=== PATIENT | male | born 1960 | race African-American/Black ===

== ENCOUNTER 2016-08-08 14:43 | Emergency (ER) | payer OTHER, SELFPAY ==
[~2016-08-08 14:43] MED LIST: Dexamethasone 10 MG/ML VIAL ONE; Ibuprofen 800 MG TAB ONE; traMADol HCl 50 MG TAB ONE
--- NOTE | 2016-08-08 16:02 | ERRECORD ---
[facility] EMERGENCY RECORD HPI BACK (15:05 BPIC) CHIEF COMPLAINT: Patient presents for evaluation of pain, to the lower back, left side. HISTORIAN: History provided by patient. MECHANISM OF INJURY: No apparent mechanism of injury, Patient does admit repetative motion/lifting that probably execerbated the pain. LOCATION: No radiation back to front, No radiation to the groin, Pain moved from, some radiation to buttock/thigh area. QUALITY: Described as similar to previous episodes. SEVERITY: Maximum severity of symptoms severe, Currently symptoms are moderate. TIME COURSE: Gradual onset of symptoms, There has been no change in the patient's symptoms over time. ASSOCIATED WITH: No associated bladder incontinence, No associated bowel incontinence, No associated dysuria, No associated fever, No associated inability to ambulate, No associated motor weakness, No associated numbness, No associated problems with urination. EXACERBATED BY: Patient's condition exacerbated by extension, Patient's condition exacerbated by flexion, Patient's condition exacerbated by movement, Patient's condition exacerbated by rotation. RELIEVED BY: Patient's condition relieved by nothing. ROS (15:05 BPIC) CONSTITUTIONAL: Negative constitutional review of systems. EYES: Negative eye review of systems. ENT: Negative ears, nose, throat review of systems. CARDIOVASCULAR: Negative cardiovascular review of systems. RESPIRATORY: Negative respiratory review of systems. GI: Negative gastrointestinal review of systems. MUSCULOSKELETAL: Negative musculoskeletal review of systems. SKIN: Negative skin review of systems. PSYCHIATRIC: Negative psychiatric review of systems. NOTES: All other ROS is negative except as listed in HPI. PAST MEDICAL HISTORY MEDICAL HISTORY: No past medical history. (14:56 SFRE) MALE SURGICAL HISTORY: Surgical history of orthopedic surgery, BACK. (14:56 SFRE) PSYCHIATRIC HISTORY: No previous psychiatric history. (14:56 SFRE) SOCIAL HISTORY: Patient drinks socially, Patient denies drug use, Patient currently uses tobacco. (14:56 SFRE) NOTES: I have reviewed and agree with the PMH/PSxH/FamHx/SocHx obtained by the nurse. (15:05 BPIC) KNOWN ALLERGIES NKDA No Known Drug Allergies (Unconfirmed) &a-1R&a+25V*p+0X*k1481Z*c202B*c15G*c2P*p-0X&a-25V&a+1R Name: Bradley Matthews: 1960 M56 MedRec: [id number] AcctNum: [id number] Prepared: SatAug 08, 2016 18:32 by Interface Page 1 of 3 pMD [facility] EMERGENCY RECORD CURRENT MEDICATIONS No recorded medications VITAL SIGNS (14:52 SFRE) VITAL SIGNS: BP: 115/85, Pulse: 87, Resp: 18, Temp: 98.6 (Oral), O2 sat: 99 on Room Air, Time: 08/08/2016 14:52. PHYSICAL EXAM (15:05 BPIC) CONSTITUTIONAL: Vital signs reviewed, Patient afebrile, Pulse normal, Blood pressure normal, Respiratory rate normal, Patient appears non toxic, Patient appears pain free, Patient alert and oriented to person, place and time. HEAD: Head exam included findings of head atraumatic, normocephalic. EYES: Eye exam included findings of eyelids normal to inspection, Pupils equally round and reactive to light, Extraocular muscles intact. ENT: ENT exam normal. NECK: Neck exam included findings of normal range of motion, Trachea midline. RESPIRATORY CHEST: Respiratory exam included findings of no respiratory distress, Breath sounds clear, Chest exam included findings of chest movement symmetrical, Chest expansion equal. CARDIOVASCULAR: Cardiovascular exam included findings of heart rate regular rate and rhythm, Heart sounds normal. BACK: Back exam included findings of normal inspection, Tenderness, Paraspinal musculature. LOWER EXTREMITY: Lower extremity exam included findings of inspection normal, no abrasions, no contusions, Motor strength normal, Sensation intact, no edema, Negative straight leg raise. Some pain with hip flexion on the affected side. NEURO: Neuro exam findings include patient oriented to person, place and time, Speech normal. PSYCHIATRIC: Psychiatric exam included findings of patient oriented to person place and time, Normal affect. MEDICATION ADMINISTRATION SUMMARY Drug Name: Decadron injection, Dose Ordered: 10 mg, Route: Intramuscular, Status: Given, Time: 15:08/08/2016, Drug Name: ibuprofen, Dose Ordered: 800 mg, Route: Oral, Status: Given, Time: :08/08/2016, Drug Name: traMADol, Dose Ordered: 50 mg, Route: Oral, Status: Given, Time: 15:08/08/2016, Detailed record available in Medication Service section. DOCTOR NOTES (15:05 BPIC) TEXT: Patient present with low back pain. DDX includes degenerative disc disease, radiculopathy, lumbago, epidural &a-1R&a+25V*p+0X*g2592G*c202B*c15G*c2P*p-0X&a-25V&a+1R Name: Bradley Matthews : 1960 M56 MedRec: [id number] AcctNum: [id number] Prepared: SatAug 08, 2016 18:32 by Interface Page 2 of 3 pMD [facility] EMERGENCY RECORD abcess/hematoma, pyriformis syndrome, sacroilitis. There are no neuro deficits or signs of central nervous system involvement. Will discharge with symptomatic treatment and have close O/P follow up. PROBLEM LIST No recorded problems DIAGNOSIS (15:07 BPIC) FINAL: PRIMARY: left lower back pain. PRESCRIPTION (15:07 BPIC) ibuprofen: TABLET : 800 mg : ORAL : Quantity: 800 Unit: mg Route: ORAL Schedule: every 8 hours PRN Dispense: 60 Unit: tab(s) May substitute. Refills: No Refills . NOTES: No Refills. traMADol: TABLET : 50 mg : ORAL : Quantity: 50 Unit: mg Route: ORAL Schedule: every 6 hours PRN Dispense: 20 Unit: tab(s) May substitute. Refills: No Refills . NOTES: ^s=No Refills No Refills. DISPOSITION PATIENT: Disposition Type: Discharge, Disposition: *Discharge Home, Condition: Good. (15:07 BPIC) Patient left the department. (15:50 SFRE) Clark: BPIC=MD Zhane, Eder SFRE=INOCENTE Walker, Francesca &a-1R&a+25V*p+0X*o0160J*c202B*c15G*c2P*p-0X&a-25V&a+1R Name: Bradley Matthews : 1960 M56 MedRec: [id number] AcctNum: [id number] Prepared: SatAug 08, 2016 18:32 by Interface Page 3 of 3 pMD [facility]
--- NOTE | 2016-08-08 16:02 | PICIS ---
[facility] EMERGENCY RECORD TRIAGE (SatAug 08, 2016 14:54 SFRE) TRIAGE NOTES: LEFT FLANK PAIN, POSSIBLY RELEATED TO WORK. (SatAug 08, 2016 14:54 SFRE) PATIENT: NAME: Bradley Matthews, AGE: 56, GENDER: male, : [facility] 1960, TIME OF GREET: SatAug 08, 2016 14:44, PREFERRED LANGUAGE: Nepali, ETHNICITY: Not or , ECODE BILLING MAP: [facility], SSN: [id number], Zip Code: [address], KG WEIGHT: 66.22, PHONE: , , , PERSON ID: [id number], PCP: NO PCP. (SatAug 08, 2016 14:54 SFRE) COMPLAINT: KIDNEY PAIN. (SatAug 08, 2016 14:54 SFRE) ADMISSION: URGENCY: 3 Urgent, ADMISSION SOURCE: Home, TRANSPORT: Walk-in, BED: ED -05. (SatAug 08, 2016 14:54 SFRE) IMMUNIZATIONS: Flu vaccine not up to date. (14:56 SFRE) PROVIDERS: TRIAGE NURSE: Francesca Walker RN. (SatAug 08, 2016 14:54 SFRE) VITAL SIGNS: BP 115/85, Pulse 87, Resp 18, Temp 98.6, (Oral), O2 Sat 99, on Room Air, Time 08/08/2016 14:52. (14:52 SFRE) PREVIOUS VISIT ALLERGIES: No Known Drug Allergies. (SatAug 08, 2016 14:54 SFRE) No Known Drug Allergies. (14:56 SFRE) KNOWN ALLERGIES NKDA No Known Drug Allergies (Unconfirmed) CURRENT MEDICATIONS No recorded medications VITAL SIGNS (14:52 SFRE) VITAL SIGNS: BP: 115/85, Pulse: 87, Resp: 18, Temp: 98.6 (Oral), O2 sat: 99 on Room Air, Time: 08/08/2016 14:52. NURSING ASSESSMENT: BACK (14:57 SFRE) CONSTITUTIONAL: Patient arrives ambulatory, Gait steady, History obtained from patient, Patient appears, in distress due to pain, Patient cooperative, Patient alert, Oriented to person, place and time, Skin warm, Skin dry, Skin normal in color, Mucous membranes pink, Mucous membranes moist, Patient is well-groomed, Patient complains of BACK PAIN. PAIN: sharp pain, shooting pain, to the lower back, to the left flank, Onset of pain 08/04/2016 14:57, constant, on a scale 0-10 patient rates pain as 8, Pain exacerbated by, elevation, lying down, sitting up, Nothing has been tried to alleviate the pain. BACK: no paresthesias to extremities. SAFETY: Side rails up, Cart/Stretcher in lowest position, Call light within reach, Hospital ID band on. &a-1R&a+25V*p+0X*o1018A*c202B*c15G*c2P*p-0X&a-25V&a+1R Name: Bradley aMtthews : 1960 M56 MedRec: [id number] AcctNum: [id number] Prepared: SatAug 08, 2016 18:38 by Interface Page 1 of 5 pMD [facility] EMERGENCY RECORD NURSING PROCEDURE: DISCHARGE NOTE (15:41 SFRE) DISCHARGE: Patient discharged to home, ambulating without assistance, family driving, accompanied by //partner, Summary of Care printed/ provided, Patient requested and was provided an electronic copy of Discharge Instructions, Discharge instructions given to patient, Simple or moderate discharge teaching performed, by INOCENTE ORTEGA, F/U WITH PCP. RX DIRECTED. RETURN TO ED NEEDED FOR NEW/CONCERNING OR WORSENING SYMPTOMS., Prescriptions given and instructions on side effects given, Name of prescription(s) given: IBUPROFEN, TRAMADOL, Above person(s) verbalized understanding of discharge instructions and follow-up care. MEDICATION ADMINISTRATION SUMMARY Drug Name: Decadron injection, Dose Ordered: 10 mg, Route: Intramuscular, Status: Given, Time: 15:08/08/2016, Drug Name: ibuprofen, Dose Ordered: 800 mg, Route: Oral, Status: Given, Time: 15:08/08/2016, Drug Name: traMADol, Dose Ordered: 50 mg, Route: Oral, Status: Given, Time: 15:08/08/2016, Detailed record available in Medication Service section. MEDICATION SERVICE Decadron injection: Order: Decadron injection (dexamethasone sod phosphate) - Dose: 10 mg : Intramuscular Schedule: Now Ordered by: Eder Phelan MD Entered by: Eder Phelan MD SatAug 08, 2016 15:06 , Acknowledged by: Francesca Walker RN SatAug 08, 2016 15:19 Documented as given by: Francesca Walker RN SatAug 08, 2016 15:26 Patient, Medication, Dose, Route and Time verified prior to administration. IM medication, Amount given: 10MG, Medication administered to left deltoid, Patient appears Awake and alert- acceptable, Correct patient, time, route, dose and medication confirmed prior to administration, Patient advised of actions and side-effects prior to administration, Allergies confirmed and medications reviewed prior to administration, Patient in position of comfort, Side rails up, Cart in lowest position, Family at bedside. ibuprofen: Order: ibuprofen - Dose: 800 mg : Oral Ordered by: Eder Phelan MD Entered by: Eder Phelan MD SatAug 08, 2016 15:06 , Acknowledged by: Francesca Walker RN SatAug 08, 2016 15:19 Documented as given by: Francesca Walker RN SatAug 08, 2016 15:26 Patient, Medication, Dose, Route and Time verified prior to administration. Amount given: 800MG, Site: Medication administered P.O., Correct patient, time, route, dose and medication confirmed prior to administration, Patient advised of actions and side-effects prior to administration, Allergies confirmed and medications reviewed prior to &a-1R&a+25V*p+0X*e4162Y*c202B*c15G*c2P*p-0X&a-25V&a+1R Name: Bradley Matthews Shahid : 1960 M56 MedRec: [id number] AcctNum: [id number] Prepared: SatAug 08, 2016 18:38 by Interface Page 2 of 5 pMD [facility] EMERGENCY RECORD administration, Patient in position of comfort, Side rails up, Cart in lowest position, Family at bedside. traMADol: Order: traMADol (tramadol HCl) - Dose: 50 mg : Oral Ordered by: Eder Phelan MD Entered by: Eder Phelan MD SatAug 08, 2016 15:06 , Acknowledged by: Francesca Walker RN SatAug 08, 2016 15:19 Documented as given by: Francesca Walker RN SatAug 08, 2016 15:25 Patient, Medication, Dose, Route and Time verified prior to administration. Amount given: 50MG, Site: Medication administered P.O., Correct patient, time, route, dose and medication confirmed prior to administration, Patient advised of actions and side-effects prior to administration, Allergies confirmed and medications reviewed prior to administration, Patient in position of comfort, Side rails up, Cart in lowest position, Family at bedside. HPI BACK (15:05 BPIC) CHIEF COMPLAINT: Patient presents for evaluation of pain, to the lower back, left side. HISTORIAN: History provided by patient. MECHANISM OF INJURY: No apparent mechanism of injury, Patient does admit repetative motion/lifting that probably execerbated the pain. LOCATION: No radiation back to front, No radiation to the groin, Pain moved from, some radiation to buttock/thigh area. QUALITY: Described as similar to previous episodes. SEVERITY: Maximum severity of symptoms severe, Currently symptoms are moderate. TIME COURSE: Gradual onset of symptoms, There has been no change in the patient's symptoms over time. ASSOCIATED WITH: No associated bladder incontinence, No associated bowel incontinence, No associated dysuria, No associated fever, No associated inability to ambulate, No associated motor weakness, No associated numbness, No associated problems with urination. EXACERBATED BY: Patient's condition exacerbated by extension, Patient's condition exacerbated by flexion, Patient's condition exacerbated by movement, Patient's condition exacerbated by rotation. RELIEVED BY: Patient's condition relieved by nothing. ROS (15:05 BPIC) CONSTITUTIONAL: Negative constitutional review of systems. EYES: Negative eye review of systems. ENT: Negative ears, nose, throat review of systems. CARDIOVASCULAR: Negative cardiovascular review of systems. RESPIRATORY: Negative respiratory review of systems. GI: Negative gastrointestinal review of systems. MUSCULOSKELETAL: Negative musculoskeletal review of systems. SKIN: Negative skin review of systems. PSYCHIATRIC: Negative psychiatric review of systems. &a-1R&a+25V*p+0X*u5336R*c202B*c15G*c2P*p-0X&a-25V&a+1R Name: Bradley Matthews : 1960 M56 MedRec: [id number] AcctNum: [id number] Prepared: SatAug 08, 2016 18:38 by Interface Page 3 of 5 pMD [facility] EMERGENCY RECORD NOTES: All other ROS is negative except as listed in HPI. PAST MEDICAL HISTORY MEDICAL HISTORY: No past medical history. (14:56 SFRE) MALE SURGICAL HISTORY: Surgical history of orthopedic surgery, BACK. (14:56 SFRE) PSYCHIATRIC HISTORY: No previous psychiatric history. (14:56 SFRE) SOCIAL HISTORY: Patient drinks socially, Patient denies drug use, Patient currently uses tobacco. (14:56 SFRE) NOTES: I have reviewed and agree with the PMH/PSxH/FamHx/SocHx obtained by the nurse. (15:05 BPIC) PHYSICAL EXAM (15:05 BPIC) CONSTITUTIONAL: Vital signs reviewed, Patient afebrile, Pulse normal, Blood pressure normal, Respiratory rate normal, Patient appears non toxic, Patient appears pain free, Patient alert and oriented to person, place and time. HEAD: Head exam included findings of head atraumatic, normocephalic. EYES: Eye exam included findings of eyelids normal to inspection, Pupils equally round and reactive to light, Extraocular muscles intact. ENT: ENT exam normal. NECK: Neck exam included findings of normal range of motion, Trachea midline. RESPIRATORY CHEST: Respiratory exam included findings of no respiratory distress, Breath sounds clear, Chest exam included findings of chest movement symmetrical, Chest expansion equal. CARDIOVASCULAR: Cardiovascular exam included findings of heart rate regular rate and rhythm, Heart sounds normal. BACK: Back exam included findings of normal inspection, Tenderness, Paraspinal musculature. LOWER EXTREMITY: Lower extremity exam included findings of inspection normal, no abrasions, no contusions, Motor strength normal, Sensation intact, no edema, Negative straight leg raise. Some pain with hip flexion on the affected side. NEURO: Neuro exam findings include patient oriented to person, place and time, Speech normal. PSYCHIATRIC: Psychiatric exam included findings of patient oriented to person place and time, Normal affect. EVENTS TRANSFER: Triage to Emergency Main ED -05. (SatAug 08, 2016 14:54 SFRE) Removed from Emergency Main ED -05. (15:50 SFRE) DOCTOR NOTES (15:05 BPIC) TEXT: Patient present with low back pain. DDX includes &a-1R&a+25V*p+0X*q6823T*c202B*c15G*c2P*p-0X&a-25V&a+1R Name: Bradley Matthews : 1960 M56 MedRec: [id number] AcctNum: [id number] Prepared: SatAug 08, 2016 18:38 by Interface Page 4 of 5 pMD [facility] EMERGENCY RECORD degenerative disc disease, radiculopathy, lumbago, epidural abcess/hematoma, pyriformis syndrome, sacroilitis. There are no neuro deficits or signs of central nervous system involvement. Will discharge with symptomatic treatment and have close O/P follow up. PROBLEM LIST No recorded problems DIAGNOSIS (15:07 BPIC) FINAL: PRIMARY: left lower back pain. DISPOSITION PATIENT: Disposition Type: Discharge, Disposition: *Discharge Home, Condition: Good. (15:07 BPIC) Patient left the department. (15:50 SFRE) INSTRUCTION (15:07 BPIC) DISCHARGE: BACK PAIN W/ SCIATICA. FOLLOWUP: ANAI, -, Primary Care Referral Line, . SPECIAL: Thank you for [facility] for your care today! Please follow up with your doctor in the next 2-3 days. Return to the emergency department with any emergent or worsening concerns. God Bless you!. PRESCRIPTION (15:07 BPIC) ibuprofen: TABLET : 800 mg : ORAL : Quantity: 800 Unit: mg Route: ORAL Schedule: every 8 hours PRN Dispense: 60 Unit: tab(s) May substitute. Refills: No Refills . NOTES: No Refills. traMADol: TABLET : 50 mg : ORAL : Quantity: 50 Unit: mg Route: ORAL Schedule: every 6 hours PRN Dispense: 20 Unit: tab(s) May substitute. Refills: No Refills . NOTES: ^s=No Refills No Refills. IMAGING (15:43 SFRE) *DISCHARGE INSTRUCTIONS RECEIPT: Image captured from scanner. *SUPPLY CHARGE SHEET: Image captured from scanner. ADMIN DIGITAL SIGNATURE: INOCENTE Walker, Francesca. (15:49 SFRE) INOCENTE Walker Stacey. (15:49 SFRE) MD Phelan Bryan. (18:27 BP) Clark: BPIC=MD Phelan Bryan SFRE=INOCENTE Walker, Francesca &a-1R&a+25V*p+0X*n0481A*c202B*c15G*c2P*p-0X&a-25V&a+1R Name: Bradley Matthews : 1960 M56 MedRec: [id number] AcctNum: [id number] Prepared: Vaibhav Aug 08, 2016 18:38 by Interface Page 5 of 5 pMD [facility]TDD
== END 2016-08-08 15:40 | disposition home or self-care (01) ==
LOC: MADERS 14:43
DX: M54.5 Low back pain (principal); F17.200 Nicotine dependence, unspecified, uncomplicated
CPT/HCPCS: 96372; J1100

== ENCOUNTER 2018-11-20 20:21 | Emergency (ER) | payer SELFPAY ==
[2018-11-20] MEDS ORDERED: methylPREDNISolone Sod Succ/PF 125 MG/2 ML VIAL ONE (20:54)
[2018-11-20] MEDS ORDERED: Sodium Chloride 0.9% 500 ML ONE ×2 (20:54→21:35)
[2018-11-20 21:11] LABS: #Basophils 0.2 thou/uL (0.0-0.2); #Eosinphils 0.2 thou/uL (0.0-0.7); #Lymphocytes 2.5 thou/uL (1.20-3.40); #Neutrophils 3.2 thou/uL (1.40-6.50); %Basophils 2.2 % (0.0-1.0); %Eosinophils 3.3 % (0.0-10.0); %Lymphocytes 35.5 % (21.0-51.0); %Monocytes 13.5 % (0.0-10.0); %Neutrophils 45.5 % (42.0-75.0); Hemoglobin 14.4 g/dL (14.0-18.0); Mean Corpuscular HGB CONC 32.1 g/dL (32.0-36.0); Mean Corpuscular Hemoglobin 28.8 pg (27.0-31.0); Mean Corpuscular Volume 89.9 fL (78.0-98.0); Mean Platelet Volume 8.7 fL (7.4-10.4); Platelet Count 209 thou/uL (130-400); Red Blood Cell (RBC) Count 4.99 mill/uL (4.70-6.10)
--- NOTE | 2018-11-20 21:11 | RAD ---
Portable frontal chest radiograph: 11/20/2018 COMPARISON: 06/09/2011 and 04/20/2017 HISTORY: COPD, cough FINDINGS: Stable increased linear interstitial density and pulmonary hyperinflation, consistent with the provided history of COPD. No pneumothorax or pleural fluid. No focal consolidation or alveolar edema. IMPRESSION: Chronic findings as described above.
[2018-11-20 21:18] LABS: ALT (SGPT) 45 U/L (8-55); AST (SGOT) 61 U/L (5-34); Albumin 4.1 g/dL (3.5-5.0); Alkaline Phosphatase 79 U/L (40-150); Anion Gap 16 mmol/L (10-20); BUN (Urea Nitrogen) 17 mg/dL (8.4-25.7); Bilirubin, Total 0.8 mg/dL (0.2-1.2); Calc. Creatinine Clearance 0 mL/min (70-130); Calcium 9.3 mg/dL (7.8-10.44); Carbon Dioxide 22 mmol/L (22-29); Chloride 101 mmol/L (98-107); Estimated GFR-MDRD 50; Globulin 4.7 g/dL (2.4-3.5); Glucose 97 mg/dL (70-105); Protein, Total 8.8 g/dL (6.0-8.3); Sodium 135 mmol/L (136-145)
== END 2018-11-20 22:20 | disposition home or self-care (01) ==
LOC: MADERS 20:21
DX: J44.1 Chronic obstructive pulmonary disease with (acute) exacerbation (principal); E86.0 Dehydration; F10.10 Alcohol abuse, uncomplicated; N28.9 Disorder of kidney and ureter, unspecified; F17.210 Nicotine dependence, cigarettes, uncomplicated
CPT/HCPCS: 36415; 71045; 80053; 83880; 84484; 85025; 85379; 93005; 94640; 94760; 96361; 96374; J2930; J7050; J7620

== ENCOUNTER 2021-03-22 17:05 | Emergency (ER) | payer SELFPAY ==
[~2021-03-22 17:05] MED LIST changes: -Dexamethasone 10 MG/ML VIAL ONE; -Ibuprofen 800 MG TAB ONE; +Iopamidol 370 76% 100 ML VIAL ONE; -traMADol HCl 50 MG TAB ONE
[2021-03-22] MEDS ORDERED: Morphine 4 MG/ML VIAL ONE ×2 (18:47→20:54)
[2021-03-22 19:00] LABS: #Basophils 0.1 thou/uL (0.0-0.2); #Eosinphils 0.3 thou/uL (0.0-0.7); #Lymphocytes 1.2 thou/uL (1.20-3.40); #Monocytes 0.6 thou/uL (0.11-0.59); #Neutrophils 3.4 thou/uL (1.40-6.50); %Basophils 2.1 % (0.0-1.0); %Eosinophils 4.9 % (0.0-10.0); %Lymphocytes 20.9 % (21.0-51.0); %Monocytes 10.9 % (0.0-10.0); %Neutrophils 61.3 % (42.0-75.0); Hemoglobin 15.4 g/dL (14.0-18.0); Mean Corpuscular HGB CONC 30.2 g/dL (32.0-36.0); Mean Corpuscular Hemoglobin 29.1 pg (27.0-31.0); Mean Corpuscular Volume 96.2 fL (78.0-98.0); Mean Platelet Volume 8.2 fL (7.4-10.4); Platelet Count 187 thou/uL (130-400); RBC Distribution Width 14.1 % (11.5-14.5); Red Blood Cell (RBC) Count 5.31 mill/uL (4.70-6.10); White Blood Cell (WBC) Count 5.5 thou/uL (4.8-10.8)
[2021-03-22 19:01] LABS: INR-International Normal Ratio 0.9; Prothrombin Time 12.6 sec (12.0-14.7)
[2021-03-22 19:09] LABS: ALT (SGPT) 192 U/L (8-55); AST (SGOT) 292 U/L (5-34); Albumin 3.9 g/dL (3.5-5.0); Alkaline Phosphatase 56 U/L (40-110); Anion Gap 13 mmol/L (10-20); BUN (Urea Nitrogen) 10 mg/dL (8.4-25.7); Bilirubin, Total 0.6 mg/dL (0.2-1.2); Calc. Creatinine Clearance 0 mL/min (70-130); Calcium 9.7 mg/dL (7.8-10.44); Carbon Dioxide 28 mmol/L (22-29); Chloride 100 mmol/L (98-107); Globulin 4.8 g/dL (2.4-3.5); Glucose 93 mg/dL (70-105); Potassium 4.4 mmol/L (3.5-5.1); Protein, Total 8.7 g/dL (6.0-8.3); Sodium 137 mmol/L (136-145)
[2021-03-22] MEDS ORDERED: Ondansetron PF 4 MG/2 ML Vial ONE (20:54)
== END 2021-03-22 22:38 | disposition home or self-care (01) ==
LOC: MADERS 17:05
DX: M54.5 Low back pain (principal); M54.2 Cervicalgia; J44.9 Chronic obstructive pulmonary disease, unspecified; F17.210 Nicotine dependence, cigarettes, uncomplicated; Z86.73 Personal history of transient ischemic attack (TIA), and cerebral infarction without residual deficits; W17.89XA Other fall from one level to another, initial encounter
CPT/HCPCS: 70450; 71045; 71260; 72125; 72170; 74177; 80053; 83605; 85025; 85610; 93005; 96374; 96375; 96376; J2270; J2405; Q9967

== ENCOUNTER 2021-07-12 08:27 | Emergency (ER) | payer SELFPAY ==
[2021-07-12] MEDS ORDERED: Sodium Chloride 0.9% 100 ML BAG IVPB ONE (08:28)
[2021-07-12] MEDS ORDERED: Iopamidol 370 76% 125 ML VIAL FS ONE (08:28)
[2021-07-12 10:13] LABS: ALT (SGPT) 78 U/L (8-55); AST (SGOT) 78 U/L (5-34); Albumin 3.9 g/dL (3.4-4.8); Alkaline Phosphatase 62 U/L (40-110); Anion Gap 15 mmol/L (10-20); BUN (Urea Nitrogen) 8 mg/dL (8.4-25.7); Bilirubin, Total 0.6 mg/dL (0.2-1.2); CK (CPK) 52 U/L (30-200); Calc. Creatinine Clearance 0 mL/min (70-130); Calcium 9.8 mg/dL (7.8-10.44); Carbon Dioxide 25 mmol/L (23-31); Chloride 95 mmol/L (98-107); Globulin 5.1 g/dL (2.4-3.5); Glucose 117 mg/dL (80-115); Potassium 4.1 mmol/L (3.5-5.1); Sodium 131 mmol/L (136-145)
[2021-07-12 10:13] LABS: Hemoglobin 17.3 g/dL (14.0-18.0); Mean Corpuscular HGB CONC 30.6 g/dL (32.0-36.0); Mean Corpuscular Hemoglobin 28.8 pg (27.0-31.0); Mean Corpuscular Volume 94.1 fL (78.0-98.0); Mean Platelet Volume 10.3 fL (7.4-10.4); Platelet Count 158 thou/uL (130-400); RBC Distribution Width 13.6 % (11.5-14.5); Red Blood Cell (RBC) Count 6.01 mill/uL (4.70-6.10); White Blood Cell (WBC) Count 4.7 thou/uL (4.8-10.8)
[2021-07-12] MEDS ORDERED: Dexamethasone 10 MG/ML VIAL ONE (10:15)
[2021-07-12] MEDS ORDERED: Sodium Chloride 0.9% 250 ML 250 ML ONE (10:15)
[2021-07-12] MEDS ORDERED: cefTRIAXone\\ROCEPHIN 2 GM VIAL ONE (10:15)
[2021-07-12] MEDS ORDERED: Azithromycin 500 MG VIAL ONE (10:15)
[2021-07-12] MEDS ORDERED: Sodium Chloride 0.9% 100 ML ONE (10:15)
[2021-07-12 10:29] LABS: MDiff Complete? YES; Manual Diff?? YES
[2021-07-12 10:30] LABS: Band 3 % (5-11); Lymphocytes 31 % (21-51); Monocytes 13 % (0-10); Neutrophil 51 % (42-75)
[2021-07-12 10:31] LABS: Anisocytosis SLIGHT = 6-15 cells (100X) (0-5/hpf); Eosinophils 3 % (0-10); Platelet Morphology Comment Appears Adequate
[2021-07-12 11:34] LABS: Bilirubin Small (Negative); Blood, Urine Trace (Negative); Clarity Clear (Clear); Glucose, Urine (Dipstick) Negative (Negative); Ketone, Urine Negative (Negative); Leukocyte Negative (Negative); Nitrite Negative (Negative); Protein, Urine (Dipstick) 100 mg/dL (Neg-Trace); Specific Gravity, Urine 1.025 (1.005-1.030); pH, Urine 6.5 (5.0-9.0)
[2021-07-12 11:45] LABS: SARS-CoV-2 NAA Rapid Test DETECTED (NotDetected)
[2021-07-12 11:46] LABS: Amphetamine Not Detected (NotDetected); Barbiturates Screen Not Detected (NotDetected); Benzodiazepine Screen Not Detected (NotDetected); Cocaine Metabolite Screen Detected (NotDetected); Methadone Not Detected (NotDetected); Methamphetamine Not Detected (NotDetected); Opiate Screen Not Detected (NotDetected); Oxycodone Screen Not Detected (NotDetected); Phencyclidine (PCP) Not Detected (NotDetected); THC/Cannabinoid Screen Not Detected (NotDetected); Tricyclic Screen Not Detected (NotDetected)
[2021-07-12 11:47] LABS: Medtox Control Line Valid? VALID (VALID)
[2021-07-12 11:52] LABS: RBC/HPF 0-3 HPF (0-3); WBC/HPF 0-3 HPF (0-3)
[2021-07-12 11:53] LABS: Bacteria/HPF Rare-Few HPF (None Seen); Squamous Epithelial 0-3 HPF (0-3)
== END 2021-07-12 13:30 | disposition home or self-care (01) ==
LOC: MADERS 08:27
DX: U07.1 COVID-19 (principal); J12.82 Pneumonia due to coronavirus disease 2019; J43.9 Emphysema, unspecified; E87.1 Hypo-osmolality and hyponatremia; F14.10 Cocaine abuse, uncomplicated; Z86.73 Personal history of transient ischemic attack (TIA), and cerebral infarction without residual deficits; F17.210 Nicotine dependence, cigarettes, uncomplicated
CPT/HCPCS: 71045; 71275; 80053; 80306; 81003; 81015; 82550; 83605; 84484; 85025; 85379; 86140; 87040; 87804; 93005; 94760; 96365; 96367; 96375; J0456; J0696; J1100; J3490; J7050; Q9967; U0002

== ENCOUNTER 2025-02-08 14:56 | Emergency (ER) | payer OTHER ==
[2025-02-08 15:46] LABS: #Basophils 0.1 thou/uL (0.0-0.2); #Eosinophils 0.1 thou/uL (0.0-0.7); #Lymphocytes 2.3 thou/uL (1.20-3.40); #Monocytes 1.1 thou/uL (0.11-0.59); #Neutrophils 4.9 thou/uL (1.40-6.50); %Basophils 1.3 % (0.0-1.0); %Eosinophils 0.7 % (0.0-10.0); %Lymphocytes 27.2 % (21.0-51.0); %Monocytes 13.4 % (0.0-10.0); %Neutrophils 57.5 % (42.0-75.0); Hematocrit 45.7 % (42.0-52.0); Hemoglobin 14.3 g/dL (14.0-18.0); Mean Corpuscular Hemoglobin 29.4 pg (27.0-31.0); Mean Corpuscular Volume 94.1 fl (78.0-98.0); Platelet Count 261 10x3/uL (130-400); Red Blood Cell (RBC) Count 4.86 mill/uL (4.70-6.10); White Blood Cell (WBC) Count 8.5 10x3/uL (4.8-10.8)
[2025-02-08 16:01] LABS: ALT (SGPT) 60 U/L (Less than 45); AST (SGOT) 71 U/L (11-34); Albumin 3.8 g/dL (3.1-4.5); Alkaline Phosphatase 36 U/L (40-110); Anion Gap 14 mmol/L (10-20); BUN (Urea Nitrogen) 17 mg/dL (8.4-25.7); Bilirubin, Total 0.8 mg/dL (0.3-1.2); Calc. Creatinine Clearance 0 mL/min (70-130); Calcium 9.2 mg/dL (7.8-10.44); Carbon Dioxide 26 mmol/L (23-31); Chloride 98 mmol/L (98-107); Globulin 4.2 g/dL (2.4-3.5); Glucose 97 mg/dL (80-115); Lipase 51 U/L (8-78); Potassium 3.9 mmol/L (3.5-5.1); Sodium 134 mmol/L (136-145)
[2025-02-08 16:02] LABS: Troponin I 0.027 ng/mL (< 0.028)
== END 2025-02-08 16:50 | disposition home or self-care (01) ==
LOC: MADERS 14:56
DX: R07.9 Chest pain, unspecified (principal); J44.1 Chronic obstructive pulmonary disease with (acute) exacerbation; F17.210 Nicotine dependence, cigarettes, uncomplicated; Z86.73 Personal history of transient ischemic attack (TIA), and cerebral infarction without residual deficits
CPT/HCPCS: 71045; 80053; 83605; 83690; 83880; 84484; 85025; 87040; 87426; 93005; 94760; 96374; J2919; J7620

== ENCOUNTER 2025-03-15 11:38 | Emergency (ER) | payer OTHER ==
[2025-03-15 12:11] LABS: #Basophils 0.1 thou/uL (0.0-0.2); #Eosinophils 0.4 thou/uL (0.0-0.7); #Lymphocytes 2.8 thou/uL (1.20-3.40); #Monocytes 1.1 thou/uL (0.11-0.59); #Neutrophils 3.4 thou/uL (1.40-6.50); %Basophils 1.3 % (0.0-1.0); %Eosinophils 5.3 % (0.0-10.0); %Lymphocytes 36.0 % (21.0-51.0); %Monocytes 13.9 % (0.0-10.0); %Neutrophils 43.5 % (42.0-75.0); Hematocrit 45.7 % (42.0-52.0); Hemoglobin 14.1 g/dL (14.0-18.0); Mean Corpuscular Hemoglobin 28.2 pg (27.0-31.0); Mean Corpuscular Volume 91.6 fl (78.0-98.0); Platelet Count 327 10x3/uL (130-400); Red Blood Cell (RBC) Count 4.99 mill/uL (4.70-6.10); White Blood Cell (WBC) Count 7.8 10x3/uL (4.8-10.8)
[2025-03-15 12:25] LABS: ALT (SGPT) 51 U/L (Less than 45); AST (SGOT) 41 U/L (11-34); Albumin 3.9 g/dL (3.1-4.5); Alkaline Phosphatase 50 U/L (40-110); Anion Gap 15 mmol/L (10-20); BUN (Urea Nitrogen) 15 mg/dL (8.4-25.7); Bilirubin, Total 0.4 mg/dL (0.3-1.2); Calc. Creatinine Clearance 0 mL/min (70-130); Calcium 9.4 mg/dL (7.8-10.44); Carbon Dioxide 26 mmol/L (23-31); Chloride 103 mmol/L (98-107); Globulin 4.4 g/dL (2.4-3.5); Glucose 83 mg/dL (80-115); Magnesium 1.8 mg/dL (1.6-2.6); Potassium 4.5 mmol/L (3.5-5.1); Sodium 139 mmol/L (136-145); Troponin I 0.043 ng/mL (< 0.028)
== END 2025-03-15 14:53 ==
LOC: MADERS 11:38
DX: J44.1 Chronic obstructive pulmonary disease with (acute) exacerbation (principal); J44.0 Chronic obstructive pulmonary disease with (acute) lower respiratory infection; J20.9 Acute bronchitis, unspecified; E86.0 Dehydration; R51.9 Headache, unspecified; F17.210 Nicotine dependence, cigarettes, uncomplicated; Z79.51 Long term (current) use of inhaled steroids
CPT/HCPCS: 70450; 71045; 80053; 83735; 83880; 84484; 85025; 85379; 87081; 87428; 87430; 93005; 96361; 96374; J2919; J7030; J7620